=== PATIENT | female | born 1990 ===

== ENCOUNTER 2022-03-16 14:29 | Outpatient (CLI) | payer OTHER ==
[~2022-03-16 14:29] MED LIST: IRON1 TA1 PO; PRENATAL TABLET1 TA1 PO
== END 2022-03-16 15:45 | disposition home or self-care (01) ==
LOC: PRENATAL 14:29
PROVIDERS: ATTEND Obstetrics & Gynecology Maternal & Fetal Medicine
DX: O35.0XX0 Maternal care for (suspected) central nervous system malformation in fetus, not applicable or unspecified (principal); O35.3XX0 Maternal care for (suspected) damage to fetus from viral disease in mother, not applicable or unspecified; Z3A.22 22 weeks gestation of pregnancy; Z91.013 Allergy to seafood

== ENCOUNTER 2022-06-09 14:56 | Emergency (ER) | payer OTHER ==
[~2022-06-09] VITALS: Ht 167.6 cm; Wt 98.4 kg
[2022-06-09] MEDS ORDERED: XOPENEX0.63 MG/3 IH (20:05)
== END 2022-06-09 21:08 | disposition home or self-care (01) ==
LOC: ER 14:56
DX: O26.893 Other specified pregnancy related conditions, third trimester (principal); Z3A.34 34 weeks gestation of pregnancy; J45.901 Unspecified asthma with (acute) exacerbation; Z91.013 Allergy to seafood

== ENCOUNTER 2022-07-11 07:17 | Inpatient (IN) | payer OTHER ==
[~2022-07-11] VITALS: Ht 167.6 cm; Wt 101.2 kg
[~2022-07-11 07:17] MED LIST changes: +XOPENEX0.63 MG/3 IH
== END 2022-07-13 15:01 | disposition home or self-care (01) | DRG 807 ==
LOC: LDR 07:17 → OB/GYN 07:17
PROVIDERS: ADMIT Obstetrics & Gynecology; ATTEND Obstetrics & Gynecology
PROC: 10E0XZZ Delivery of Products of Conception, External Approach (ICD-10-PCS; principal; 2022-07-11)
PROC: 4A1HXCZ Monitoring of Products of Conception, Cardiac Rate, External Approach (ICD-10-PCS; 2022-07-11)
DX: O80 Encounter for full-term uncomplicated delivery (principal); Z37.0 Single live birth; Z3A.39 39 weeks gestation of pregnancy; Z20.822 Contact with and (suspected) exposure to COVID-19